=== PATIENT | female | born 2000 | race Caucasian/White ===

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

== ENCOUNTER 2019-04-26 03:01 | Emergency (ER) | payer OTHER ==
[~2019-04-26] VITALS: Ht 162.6 cm; Wt 88.0 kg
[~2019-04-26 03:01] MED LIST changes: +BENZ200C68 PO; +FAMO-96 PO; +GUAI120S25 PO; -GUAI120S26 PO; +ONDA8TAB14 PO; +PRED20TA PO
[2019-04-26 03:04] VITALS: Ht 162.6 cm; Wt 88.0 kg
[2019-04-26] MEDS ORDERED: predniSONE 20 MG TAB PO ONE (03:30)
[2019-04-26] MEDS ORDERED: ONDANSETRON 4 MG TAB PO ONE (03:30)
[2019-04-26] MEDS ORDERED: SOD CHLORIDE 0.9% 1,000 ML IV STA (05:40)
[2019-04-26] MEDS ORDERED: SOD CHLORIDE 0.9% 100 ML ONE (07:23)
[2019-04-26] MEDS ORDERED: IOHEXOL 300MG/ML 150 ML BTL ONE (07:23)
[2019-04-26 08:07] VITALS: BP 120/79; PULSE 87; RESP 17
== END 2019-04-26 08:07 | disposition home or self-care (01) ==
LOC: FTE 03:01
DX: J04.0 Acute laryngitis (principal)
CPT/HCPCS: 70360; 70491; 80053; 81025; 85025; 87070; 87880; J7030; J7512; Q9967; Z7610; 36415; 96360